=== PATIENT | male | born 1970 ===

== ENCOUNTER 2019-03-10 07:45 | Day surgery (SDC) | payer OTHER ==
[2019-03-07 11:12] VITALS: BMI 35.5
[~2019-03-10 07:45] MED LIST: LIDOCAINE 1% 20 ML VIAL (10MG/ML) FOR IV START INTRADERMA PRN
[2019-03-10 08:08] VITALS: RESP 18; TEMP 98
[2019-03-10] MEDS: LACTATED RINGERS 1,000 ML IV SCH ×2 (08:08→08:16)
[2019-03-10 08:13] LABS: Glucose,Whole Blood 137 mg/dL (75-99)
[2019-03-10] MEDS ORDERED: LIDOCAINE 1% INJ 10MG/ML (20 ML MDV) ONE (08:17)
[2019-03-10] MEDS ORDERED: PROPOFOL 10 MG/ML 20 ML VIAL IV ONE (08:17)
--- NOTE | 2019-03-10 08:25 | P.GSHP ---
History of Present Illness H&P Date: 03/10/19 Chief Complaint: Peptic ulcer disease This a 48-year-old male who presents today for EGD. He has issues of peptic ulcer disease. He's had some complaints of epigastric pain. Past Medical History Additional Past Medical History / Comment(s): RECENT HEARTBURN History of Any Multi-Drug Resistant Organisms: None Reported Past Surgical History: No Surgical Hx Reported Past Anesthesia/Blood Transfusion Reactions: No Reported Reaction Smoking Status: Never smoker - Past Family History Mother Family Medical History: No Reported History Medications and Allergies Home Medications Medication Instructions Recorded Confirmed Type No Known Home Medications 03/07/19 03/10/19 History Allergies Allergy/AdvReac Type Severity Reaction Status Date / Time No Known Allergies Allergy Verified 03/10/19 08:09 Surgical - Exam Vital Signs Temp Pulse Resp BP Pulse Ox 98.0 F 72 18 143/83 98 03/10/19 08:05 03/10/19 08:05 03/10/19 08:05 03/10/19 08:05 03/10/19 08:05 - General well developed, well nourished, no distress - Eyes PERRL - ENT normal pinna - Neck no masses - Respiratory normal expansion - Cardiovascular Rhythm: regular - Abdomen Abdomen: soft, non tender Results - Labs Abnormal Lab Results - Last 24 Hours (Table) 03/10/19 Range/Units 08:07 POC Glucose (mg/dL) 137 H (75-99) mg/dL Assessment and Plan Assessment: Peptic ulcer disease. We'll perform EGD.
--- NOTE | 2019-03-10 08:35 | P.OP ---
Date of Procedure: 03/10/19 Preoperative Diagnosis: Epigastric pain Peptic ulcer disease Postoperative Diagnosis: Mild antral gastritis Mild esophagitis No evidence of hiatal hernia No evidence of peptic ulcer Procedure(s) Performed: EGD Anesthesia: MAC Surgeon: Te Foley Pathology: other (Antrum, esophagus) Condition: stable Disposition: PACU Description of Procedure: The patient's placed on the endoscopy table in the lateral position. He received IV sedation. The gastroscope placed oropharynx passed in the esophagus and stomach. Scope then placed through the pylorus. The first and second portion of the duodenum appeared normal. The scope was then brought back the antrum and this was minimal inflamed and a biopsies performed. Scope was then retroflexed and the remainder of the stomach appeared normal. There is no significant hiatal hernia. The GE junction was at 40 cm. The distal esophagus appeared minimally inflamed a biopsies performed. The proximal esophagus appeared normal. Scope was withdrawn for patient. Patient was scheduled for a HIDA scan to evaluate for possibly dysfunction as the sources of his indigestion.
[2019-03-10 09:17] VITALS: BP 116/73; PULSE 66
--- NOTE | 2019-03-10 12:31 | NM ---
EXAMINATION TYPE: NM hepatobiliary w CCK DATE OF EXAM: 03/10/2019 COMPARISON: NONE HISTORY: Indigestion, heartburn and reflux, nausea and vomiting TECHNIQUE: After the intravenous administration of 4.08 mCi Tc 99m Mebrofenin hepatobiliary scintigra phy is performed. Immediate images post injection. FINDINGS: There is satisfactory initial accumulation of tracer by the liver. The gallbladder is visualized wit hin 8 minutes. The small bowel activity is noted on delayed images at 90 minutes. At one hour CCK w as administered, patient was injected with 1.9 mcg of Kinevac, and gallbladder ejection fraction is c alculated at 97 %, above the upper limit of normal range. Therefore there is no scintigraphic eviden ce of cystic or common bile duct obstruction to suggest acute cholecystitis. IMPRESSION: Findings may represent hyper dynamic gallbladder.
== END 2019-03-10 09:27 | disposition home or self-care (01) ==
LOC: ORWHC2ENDO 07:45
PROVIDERS: ATTEND Surgery
DX: K29.50 Unspecified chronic gastritis without bleeding (principal); K31.89 Other diseases of stomach and duodenum; K20.9 Esophagitis, unspecified; K21.9 Gastro-esophageal reflux disease without esophagitis; Z87.11 Personal history of peptic ulcer disease
CPT/HCPCS: 43239; 88305; 78227; A9537; J2805; J2001; J2704

== ENCOUNTER 2019-04-18 07:42 | Day surgery (SDC) | payer OTHER ==
[2019-04-13 11:59] VITALS: BMI 34.3
[~2019-04-18 07:42] MED LIST changes: +DEXAMETHASONE SOD PHOSPHATE 10 MG/ML 1 ML VIAL IV ONE; +HEPARIN SODIUM,PORCINE 5,000 UNIT/ML 1 ML VIAL SQ ONE; +HYDROmorphone 0.5 MG/0.5 ML SYRINGE IVP PRN; +LACTATED RINGERS 1,000 ML IV SCH; +ONDANSETRON 4 MG/2 ML VIAL IVP ONE; +fentaNYL (PF) 50 MCG/ML 2 ML AMP IV PRN
[2019-04-18 08:30] LABS: Glucose,Whole Blood 150 mg/dL (75-99)
--- NOTE | 2019-04-18 09:22 | P.GSHP ---
History of Present Illness H&P Date: 04/18/19 Chief Complaint: Cholecystitis This a 48-year-old male who presents today for laparoscopic cholestatic. Patient's had complaints of indigestion. His HIDA scan is abnormal. Past Medical History Past Medical History: Diabetes Mellitus, Hyperlipidemia Additional Past Medical History / Comment(s): HX HEARTBURN. GALLBLADDER PROB. History of Any Multi-Drug Resistant Organisms: None Reported Past Surgical History: No Surgical Hx Reported Additional Past Surgical History / Comment(s): EGD Past Anesthesia/Blood Transfusion Reactions: No Reported Reaction Smoking Status: Never smoker - Past Family History Mother Family Medical History: No Reported History Medications and Allergies Home Medications Medication Instructions Recorded Confirmed Type Simvastatin [Zocor] 20 mg PO HS 04/14/19 04/18/19 History sitaGLIPtin [Januvia] 50 mg PO DAILY 04/14/19 04/18/19 History Allergies Allergy/AdvReac Type Severity Reaction Status Date / Time No Known Allergies Allergy Verified 04/18/19 08:03 Surgical - Exam Vital Signs Temp Pulse Resp BP Pulse Ox 97.3 F L 65 16 126/84 98 04/18/19 08:07 04/18/19 08:07 04/18/19 08:07 04/18/19 08:07 04/18/19 08:07 - General well developed, well nourished, no distress - Eyes PERRL - ENT normal pinna - Neck no masses - Respiratory normal expansion - Cardiovascular Rhythm: regular - Abdomen Abdomen: soft, non tender Results - Labs Abnormal Lab Results - Last 24 Hours (Table) 04/18/19 Range/Units 08:13 POC Glucose (mg/dL) 150 H (75-99) mg/dL Assessment and Plan Assessment: Cholecystitis Abnormal HIDA scan Indigestion We'll perform laparoscopic cholecystectomy
[2019-04-18] MEDS ORDERED: BUPIVACAINE (PF) 0.25% 30 ML VIAL SQ ONE (09:36)
[2019-04-18] MEDS ORDERED: ROCURONIUM BROMIDE 10 MG/ML 10 ML VIAL IV ONE (09:37)
[2019-04-18] MEDS ORDERED: GLYCOPYRROLATE 0.2 MG/ML 2 ML VIAL ONE (09:37)
[2019-04-18] MEDS ORDERED: SUCCINYLCHOLINE CHLORIDE 100 MG/5 ML SYR IV ONE (09:37)
[2019-04-18] MEDS ORDERED: NEOSTIGMINE 1 MG/ML 10 ML VIAL ONE (09:37)
[2019-04-18] MEDS ORDERED: LIDOCAINE 1% INJ 10MG/ML (20 ML MDV) ONE (09:37)
[2019-04-18] MEDS ORDERED: PROPOFOL 10 MG/ML 20 ML VIAL IV ONE (09:37)
[2019-04-18] MEDS ORDERED: fentaNYL (PF) 50 MCG/ML 2 ML AMP ONE (09:37)
[2019-04-18] MEDS ORDERED: MIDAZOLAM 2 MG/2 ML VIAL ONE (09:37)
[2019-04-18 10:26] VITALS: TEMP 98
--- NOTE | 2019-04-18 10:36 | P.OP ---
Date of Procedure: 04/18/19 Preoperative Diagnosis: Cholecystitis Postoperative Diagnosis: Cholecystitis Procedure(s) Performed: Laparoscopic cholecystectomy Anesthesia: VAN Surgeon: Te Foley Estimated Blood Loss (ml): 5 Pathology: other (Gallbladder) Condition: stable Disposition: PACU Description of Procedure: The patient was placed on the operating table. The patient received a general endotracheal tube anesthesia. The patients abdomen was prepped and draped in the usual sterile fashion. Through an infraumbilical stab incision, the fascia of the anterior abdominal wall was grasped with a pair of Kochers and then the Veress needle was placed in the peritoneal cavity. Position of the Veress needle was confirmed with positive drop test. The abdomen was then insufflated. After adequate insufflation, the 10 mm trocar was placed in the peritoneal cavity. Following this the laparoscope was placed in the peritoneal cavity. The patient was placed in the head-up, right side up position and then a 5 mm trocar was placed in the right lateral and right subcostal position under direct visualization. A 8 mm trocar was placed in the epigastric position. The gallbladder was grasped in the fundus and infundibulum. Traction on the gallbladder was placed in the lateral and the cephalad positions. The triangle of Calot was visualized.. The cystic duct was bluntly dissected until the union of the cystic duct and common bile duct was seen. A critical view of safety was achieved. The cystic duct was then divided and sealed with the Harmonic scissors. A PDS Endoloop was then placed throughout the cystic duct stump. The cystic artery divided and sealed with the Harmonic scissors. The gallbladder was then removed from the liver bed using Harmonic scissors. The gallbladder was then extracted through the epigastric port site. Operative field was checked for any bleeding spots and Harmonic scissors was used to coagulate the liver bed. The abdomen was irrigated. The trocars were removed. The skin was closed using interrupted 3-0 Vicryl suture. Dermabond dressing were applied. The patient tolerated the procedure well.
[2019-04-18] MEDS: HYDROmorphone 1 MG/ML 1 ML SYRINGE IVP ONE ×2 (10:37→10:46)
[2019-04-18 11:05] VITALS: RESP 16
[2019-04-18] MEDS ORDERED: LACTATED RINGERS 1,000 ML IV ONE (11:06)
[2019-04-18] MEDS ORDERED: HYDROcodone/APAP 5-325MG 1 EACH TAB PO ONE (11:38)
[2019-04-18 12:09] LABS: Glucose,Whole Blood 200 mg/dL (75-99)
[2019-04-18 12:27] VITALS: BP 137/88; PULSE 66
== END 2019-04-18 12:59 | disposition home or self-care (01) ==
LOC: OR 07:42
PROVIDERS: ATTEND Surgery
DX: K81.1 Chronic cholecystitis (principal); E11.9 Type 2 diabetes mellitus without complications; E78.5 Hyperlipidemia, unspecified; Z79.84 Long term (current) use of oral hypoglycemic drugs; Z79.899 Other long term (current) drug therapy
CPT/HCPCS: 88304; 47562; J2250; J1644; J1100; J2710; J0690; J2405; J2001; J3010; J1170; J0330; J2704